=== PATIENT | female | born 1985 | race Caucasian/White ===

== ENCOUNTER → 2024-01-12 13:25 | Outpatient (REF) | payer BC, SELFPAY | LOC: PNTC 13:25 | PROVIDERS: ATTENDING PHYSICIAN Obstetrics & Gynecology | DX: O99.280 Endocrine, nutritional and metabolic diseases complicating pregnancy, unspecified trimester (principal); O13.9 Gestational [pregnancy-induced] hypertension without significant proteinuria, unspecified trimester; O99.210 Obesity complicating pregnancy, unspecified trimester; O09.529 Supervision of elderly multigravida, unspecified trimester; Z87.59 Personal history of other complications of pregnancy, childbirth and the puerperium | CPT/HCPCS: 76805 ==

== ENCOUNTER → 2024-02-07 14:57 | Outpatient (REF) | payer BC, SELFPAY | LOC: PNTC 14:57 | PROVIDERS: ATTENDING PHYSICIAN Obstetrics & Gynecology | DX: O99.210 Obesity complicating pregnancy, unspecified trimester (principal); O09.529 Supervision of elderly multigravida, unspecified trimester; O99.280 Endocrine, nutritional and metabolic diseases complicating pregnancy, unspecified trimester; Z87.59 Personal history of other complications of pregnancy, childbirth and the puerperium; O13.9 Gestational [pregnancy-induced] hypertension without significant proteinuria, unspecified trimester | CPT/HCPCS: 76811 ==

== ENCOUNTER → 2024-03-06 13:16 | Outpatient (REF) | payer BC, SELFPAY | LOC: PNTC 13:16 | PROVIDERS: ATTENDING PHYSICIAN Obstetrics & Gynecology | DX: O99.210 Obesity complicating pregnancy, unspecified trimester (principal); O13.9 Gestational [pregnancy-induced] hypertension without significant proteinuria, unspecified trimester; O99.280 Endocrine, nutritional and metabolic diseases complicating pregnancy, unspecified trimester | CPT/HCPCS: 76816 ==

== ENCOUNTER → 2024-04-05 13:21 | Outpatient (REF) | payer BC, SELFPAY | LOC: PNTC 13:21 | PROVIDERS: ATTENDING PHYSICIAN Obstetrics & Gynecology | DX: I10 Essential (primary) hypertension (principal); E03.9 Hypothyroidism, unspecified; O09.519 Supervision of elderly primigravida, unspecified trimester | CPT/HCPCS: 76816 ==

== ENCOUNTER → 2024-05-02 07:52 | Outpatient (REF) | payer BC, SELFPAY | LOC: PNTC 07:52 | PROVIDERS: ATTENDING PHYSICIAN Obstetrics & Gynecology | DX: O09.529 Supervision of elderly multigravida, unspecified trimester (principal); O99.210 Obesity complicating pregnancy, unspecified trimester; O16.9 Unspecified maternal hypertension, unspecified trimester | CPT/HCPCS: 59025; 76816; 76818 ==

== ENCOUNTER → 2024-05-09 07:55 | Outpatient (REF) | payer BC, SELFPAY | LOC: PNTC 07:55 | PROVIDERS: ATTENDING PHYSICIAN Obstetrics & Gynecology | DX: O09.519 Supervision of elderly primigravida, unspecified trimester (principal); O99.210 Obesity complicating pregnancy, unspecified trimester; O10.119 Pre-existing hypertensive heart disease complicating pregnancy, unspecified trimester | CPT/HCPCS: 59025; 76815 ==

== ENCOUNTER → 2024-05-16 07:56 | Outpatient (REF) | payer BC, SELFPAY | LOC: PNTC 07:56 | PROVIDERS: ATTENDING PHYSICIAN Obstetrics & Gynecology | DX: O99.210 Obesity complicating pregnancy, unspecified trimester (principal); O09.519 Supervision of elderly primigravida, unspecified trimester; O10.119 Pre-existing hypertensive heart disease complicating pregnancy, unspecified trimester | CPT/HCPCS: 59025; 76818 ==

== ENCOUNTER → 2024-05-23 07:58 | Outpatient (REF) | payer BC, SELFPAY | LOC: PNTC 07:58 | PROVIDERS: ATTENDING PHYSICIAN Obstetrics & Gynecology | DX: O09.529 Supervision of elderly multigravida, unspecified trimester (principal); O99.210 Obesity complicating pregnancy, unspecified trimester; O16.9 Unspecified maternal hypertension, unspecified trimester | CPT/HCPCS: 59025; 76818 ==

== ENCOUNTER 2024-05-30 09:39 | Inpatient (IN) | payer BC, SELFPAY ==
[2024-05-30 09:44] LABS: % Basophils 0.4 % (0-2); % Eosinophils 2.6 % (0-6); % Immature Granulocytes 0.5 % (0-0.5); % Lymphocytes 22.5 % (20.5-51.1); Absolute Eosinophils 0.2 10^3/uL (0-0.7); Absolute Lymphocytes 1.7 10^3/uL (1.2-3.4); Absolute Monocytes 0.5 10^3/uL (0.1-0.6); Absolute Neutrophils 5.2 10^3/uL (1.4-6.5); Hematocrit 30.7 % (37.0-47.0); Hemoglobin 10.8 g/dL (12.0-16.0); Mean Corp Hgb Conc. 35.2 g/dL (33.0-37.0); Mean Corpuscular Hgb 30.4 pg (27.0-31.0); Mean Corpuscular Volume 86.5 fL (81.0-99.0); Mean Platelet Volume 9.3 fL (7.4-10.4); Nucleated Red Blood Cells % 0 %; Platelet Count 232 10^3/uL (130-400); Red Blood Cell Count 3.55 10^6/uL (4.20-5.40); Red Cell Dist. Width 13.1 % (11.5-14.5); White Blood Cell Count 7.7 10^3/uL (4.8-10.8)
[2024-05-30 09:54] LABS: Urine Albumin Negative (Neg - Trace); Urine Bilirubin Negative (Negative); Urine Character Clear (Clear); Urine Color Yellow; Urine Glucose Negative (Negative); Urine Ketone Trace (Negative); Urine Leukocyte Trace (Negative); Urine Nitrite Negative (Negative); Urine Occult Blood Negative (Negative); Urine Urobilinogen Negative (Neg - 1+); Urine pH 6.5 (5.0-9.0)
[2024-05-30 09:59] LABS: ALT (SGPT) 13 U/L (0-35); AST (SGOT) 21 U/L (14-36); Albumin 3.1 g/dl (3.5-5.0); Alkaline Phosphatase 109 U/L (38-126); Blood Urea Nitrogen 10 mg/dl (7-17); Calcium 9.1 mg/dl (8.4-10.2); Carbon Dioxide 23 mmol/L (22-30); Chloride 105 mmol/L (98-107); Glucose 125 mg/dl (70-99); Potassium 3.8 mmol/L (3.5-5.1); Sodium 133 mmol/L (135-145); Total Bilirubin 0.3 mg/dl (0.2-1.3); Total Protein 5.6 g/dl (6.3-8.2); eGFR > 60.00
[2024-05-30 10:01] VITALS: BP 143/90; BMI 54.5
[2024-05-30 10:19] LABS: Urine Bacteria Few (Negative); Urine Mucus Few; Urine Red Blood Cell 0-2 /HPF (0-2); Urine White Cell 0-2 /HPF (0-5)
[2024-05-30 10:20] LABS: Protein/creatinine Ratio 0.1; Urine Protein 10 mg/dl
[2024-05-30] MEDS: CELESTONE SOLUSPAN 2 MG IM (10:33)
[2024-05-30] MEDS: MAGNESIUM SULFATE 100 IV (15:45)
[2024-05-30] MEDS: LR 1000 IV (15:45)
[2024-05-30] MEDS: TRANDATE 20 MG IV ×2 (15:49→19:26)
[2024-05-30] MEDS: MAGNESIUM SULFATE 40 GRAM 1000 IV (16:21)
[2024-05-30] MEDS: BICITRA 30 ML PO (16:31)
[2024-05-30] MEDS: TYLENOL 1000 MG PO (16:31)
[2024-05-30] MEDS: ANCEF 15 MG IV (16:39)
[2024-05-30] MEDS: TRANDATE 40 MG IV (19:44)
[2024-05-30] MEDS: TRANDATE 200 MG PO (19:48)
[2024-05-31] MEDS: LR 1000 IV ×2 (02:48→15:46)
[2024-05-31] MEDS: TORADOL 15 MG IV ×4 (04:02→22:01)
[2024-05-31 04:45] LABS: Hematocrit 30.5 % (37.0-47.0); Hemoglobin 10.6 g/dL (12.0-16.0); Mean Corp Hgb Conc. 34.8 g/dL (33.0-37.0); Mean Corpuscular Volume 86.4 fL (81.0-99.0); Mean Platelet Volume 9.3 fL (7.4-10.4); Platelet Count 248 10^3/uL (130-400); Red Blood Cell Count 3.53 10^6/uL (4.20-5.40); Red Cell Dist. Width 13.1 % (11.5-14.5); White Blood Cell Count 13.4 10^3/uL (4.8-10.8)
[2024-05-31 05:10] LABS: ALT (SGPT) 13 U/L (0-35); AST (SGOT) 24 U/L (14-36); Alkaline Phosphatase 106 U/L (38-126); Blood Urea Nitrogen 12 mg/dl (7-17); Carbon Dioxide 20 mmol/L (22-30); Chloride 104 mmol/L (98-107); Estimated Creatinine Clearance > 125 ml/min; Glucose 133 mg/dl (70-99); Potassium 4.7 mmol/L (3.5-5.1); Sodium 130 mmol/L (135-145); Total Bilirubin 0.3 mg/dl (0.2-1.3); Total Protein 5.6 g/dl (6.3-8.2); eGFR > 60.00
[2024-05-31] MEDS: SYNTHROID 100 MCG PO (06:04)
--- NOTE | 2024-05-31 07:35 | W.PN.ANS.POP ---
Anesthesia Post Operative
- Anesthesia Post Op Note
Vital Signs Stable-See Nursing Note: Yes
Airway Patent: Yes
Adequate Pain Control: Yes
Change in Mental Status: No
Current Postoperative Nausea & Vomiting: No
Anesthesia Complications: No
General Anesthetic Recall: No
Unplanned Admission: No
Post Op Hydration Adequate: Yes
[2024-05-31] MEDS: FLOVENT 44 MCG INHALER INH (08:00)
[2024-05-31] MEDS: TRANDATE 200 MG PO (08:07)
[2024-05-31] MEDS: LEXAPRO 10 MG PO (08:07)
[2024-05-31] MEDS: PRENATAL PLUS 1 TABLET PO (08:07)
[2024-05-31] MEDS: MAGNESIUM SULFATE 40 GRAM 1000 IV (10:06)
[2024-05-31 16:18] LABS: Hematocrit 28.3 % (37.0-47.0); Hemoglobin 9.8 g/dL (12.0-16.0); Mean Corp Hgb Conc. 34.6 g/dL (33.0-37.0); Mean Corpuscular Hgb 31.1 pg (27.0-31.0); Mean Corpuscular Volume 89.8 fL (81.0-99.0); Mean Platelet Volume 9.3 fL (7.4-10.4); Platelet Count 238 10^3/uL (130-400); Red Blood Cell Count 3.15 10^6/uL (4.20-5.40); Red Cell Dist. Width 13.3 % (11.5-14.5); White Blood Cell Count 10.5 10^3/uL (4.8-10.8)
[2024-05-31 16:34] LABS: ALT (SGPT) 13 U/L (0-35); AST (SGOT) 24 U/L (14-36); Albumin 2.9 g/dl (3.5-5.0); Alkaline Phosphatase 99 U/L (38-126); Blood Urea Nitrogen 16 mg/dl (7-17); Calcium 7.4 mg/dl (8.4-10.2); Carbon Dioxide 24 mmol/L (22-30); Chloride 99 mmol/L (98-107); Estimated Creatinine Clearance > 125 ml/min; Glucose 126 mg/dl (70-99); Magnesium 6.2 mg/dl (1.6-2.3); Potassium 4.6 mmol/L (3.5-5.1); Sodium 125 mmol/L (135-145); Total Bilirubin 0.3 mg/dl (0.2-1.3); Total Protein 5.4 g/dl (6.3-8.2); eGFR > 60.00
[2024-05-31 18:57] LABS: Osmolality Serum 281 mOsm/kg (275-300)
[2024-05-31] MEDS: LASIX 20 MG IV (19:42)
[2024-05-31] MEDS: TRANDATE PO (21:31)
[2024-06-01] MEDS: MOTRIN 600 MG PO ×2 (04:36→16:30)
[2024-06-01] MEDS: SYNTHROID 100 MCG PO (05:27)
[2024-06-01 05:52] LABS: Osmolality Serum 289 mOsm/kg (275-300)
[2024-06-01 05:57] LABS: ALT (SGPT) 14 U/L (0-35); AST (SGOT) 26 U/L (14-36); Albumin 3.1 g/dl (3.5-5.0); Alkaline Phosphatase 94 U/L (38-126); Blood Urea Nitrogen 22 mg/dl (7-17); Calcium 8.5 mg/dl (8.4-10.2); Carbon Dioxide 27 mmol/L (22-30); Chloride 104 mmol/L (98-107); Estimated Creatinine Clearance 118 ml/min; Glucose 93 mg/dl (70-99); Potassium 4.5 mmol/L (3.5-5.1); Sodium 133 mmol/L (135-145); Total Bilirubin 0.3 mg/dl (0.2-1.3); Total Protein 5.6 g/dl (6.3-8.2); eGFR > 60.00
[2024-06-01] MEDS: FLOVENT 44 MCG INHALER INH ×2 (07:00→07:01)
[2024-06-01 07:11] LABS: Osmolality Urine 301 mOsm/kg (300-900)
[2024-06-01 07:43] LABS: Urine Sodium 14 mmol/L (30-90)
[2024-06-01] MEDS: FLOVENT 44 MCG INHALER 2 PUFF INH (07:59)
[2024-06-01] MEDS: TRANDATE PO (08:31)
[2024-06-01] MEDS: TYLENOL 650 MG PO (08:37)
[2024-06-01] MEDS: FEOSOL 325 MG PO (08:37)
[2024-06-01] MEDS: SENOKOT-S 1 TABLET PO (08:37)
[2024-06-01] MEDS: LEXAPRO 10 MG PO (08:38)
[2024-06-01] MEDS: PRENATAL PLUS 1 TABLET PO (08:38)
[2024-06-01] MEDS: TRANDATE 200 MG PO ×2 (12:30→20:05)
[2024-06-02] MEDS: MOTRIN 600 MG PO (02:40)
[2024-06-02] MEDS: SYNTHROID 100 MCG PO (06:14)
[2024-06-02] MEDS: PRENATAL PLUS 1 TABLET PO (07:45)
[2024-06-02] MEDS: LEXAPRO 10 MG PO (07:48)
[2024-06-02] MEDS: TRANDATE 200 MG PO (07:48)
[2024-06-02] MEDS: FEOSOL 325 MG PO (07:48)
[2024-06-02] MEDS: FLOVENT 44 MCG INHALER 2 PUFF INH (08:03)
--- NOTE | 2024-06-02 08:48 | W.DS.TRANS ---
DC Summary - Talent [employer]
-
Discharge Instructions:
Discharge Diagnosis/Procedures delivered by csection
Diet Regular
Activity No strenuous activity
Driving Restrictions No driving for 2 weeks
Bathing Restrictions OK to Shower
Instructions:
Stand-Alone Forms: LDRP Delivery
LDRP Hypertensive Disorders
Changes to Home Medications: No
Discharge Medications:
DC Medications w/original date entered in [place] P[facility]
Pulmocort Inhaler 180 inhaler inhalation DAILY Lung/breathing issues 08/12/21
escitalopram oxalate 10 mg tablet (Lexapro) 10 mg PO DAILY Mental Health/Anxiety 05/30/24
acetaminophen 325 mg tablet 650 mg (2 x 325 mg) PO Q4HPRN PRN mild pain #0 tabs 06/02/24
ibuprofen 600 mg tablet 600 mg PO Q6HPRN PRN cramps #0 tabs 06/02/24
labetalol 100 mg tablet 100 mg PO BID Blood Pressure #60 tabs 06/02/24
vitamin with calcium no.72-iron 27 mg-folic acid 1 mg tablet (WesTab Plus) 1 tab PO DAILY #0 tabs 06/02/24
Home Medication Changes
Pending Results: Yes
Total time spent discharging patient (in min): 30
[2024-06-02 15:57] LABS: Syphilis/T. pallidum Ab Reflex Negative (Negative)
== END 2024-06-02 11:20 | disposition home or self-care (01) | DRG 784 ==
LOC: LDRP 09:39
PROVIDERS: Obstetrics & Gynecology; ADMITTING PHYSICIAN Obstetrics & Gynecology
PROC: 10D00Z1 Extraction of Products of Conception, Low, Open Approach (ICD-10-PCS; 2024-05-30)
PROC: 0UT70ZZ Resection of Bilateral Fallopian Tubes, Open Approach (ICD-10-PCS; 2024-05-30)
DX: O11.4 Pre-existing hypertension with pre-eclampsia, complicating childbirth (principal); E27.40 Unspecified adrenocortical insufficiency; E87.1 Hypo-osmolality and hyponatremia; O10.02 Pre-existing essential hypertension complicating childbirth; Z3A.36 36 weeks gestation of pregnancy; Z37.0 Single live birth; O32.8XX0 Maternal care for other malpresentation of fetus, not applicable or unspecified; O34.211 Maternal care for low transverse scar from previous cesarean delivery; O90.81 Anemia of the puerperium; D64.9 Anemia, unspecified; O99.214 Obesity complicating childbirth; O99.344 Other mental disorders complicating childbirth; F41.9 Anxiety disorder, unspecified; D13.4 Benign neoplasm of liver; O99.284 Endocrine, nutritional and metabolic diseases complicating childbirth; E03.9 Hypothyroidism, unspecified; E28.2 Polycystic ovarian syndrome; Z88.8 Allergy status to other drugs, medicaments and biological substances; Z30.2 Encounter for sterilization; Z79.890 Hormone replacement therapy
CPT/HCPCS: 88302; 88307; 58605; 59025; 76816; 80053; 81003; 81015; 82570; 83735; 83930; 83935; 84156; 84300; 85025; 85027; 86780; 86850; 86900; 86901; 94640